=== PATIENT | male | born 1970 | race Caucasian/White ===

== ENCOUNTER → 2016-04-07 | Outpatient (CLI) | payer OTHER | LOC: RAD 08:46 | PROVIDERS: ATTEND Otolaryngology | DX: K22.70 Barrett's esophagus without dysplasia (principal) | CPT/HCPCS: 74210 ==

== ENCOUNTER → 2016-06-14 | Outpatient (CLI) | payer OTHER | LOC: RAD 08:43 | PROVIDERS: ATTEND Internal Medicine Gastroenterology | DX: R13.14 Dysphagia, pharyngoesophageal phase (principal); Z53.8 Procedure and treatment not carried out for other reasons ==